=== PATIENT | male | born 1970 | race Caucasian/White ===

== ENCOUNTER 2021-12-09 14:59 | Emergency (ER) | payer BC ==
[2021-12-09 15:33] VITALS: BP 126/85; PULSE 68; TEMP 97.9; BMI 26.7
== END 2021-12-09 15:55 | disposition home or self-care (01) ==
LOC: FER 14:59
DX: G57.12 Meralgia paresthetica, left lower limb (principal)
CPT/HCPCS: 73560-TC-LT-FY; 99283-25